=== PATIENT | female | born 1945 | race Caucasian/White ===

== ENCOUNTER 2019-04-26 12:26 | Inpatient (IN) ==
[2019-04-26] MEDS ORDERED: ONDANSETRON 4 MG/2 ML VIAL IV STA (12:59)
[2019-04-26] MEDS ORDERED: SODIUM CHLORIDE 0.9% 1,000 ML IV STA (12:59)
[2019-04-26 13:18] LABS: Basophils # 0.1 10*3/uL (0.0-0.2); Basophils % 0.5 % (0.0-0.8); Hemoglobin 11.8 GM/DL (12.0-16.0); Immature Granulocytes % 0.8 %; Immature Granulocytes Absolute 0.14 #; Lymphocytes # 1.7 10*3/uL (1.4-4.0); Lymphocytes % 9.9 % (21.3-54.2); Mean Corpuscular HGB Conc 30.3 GM/DL (32-36); Mean Corpuscular Volume 86.1 FL (87-102); Monocytes % 6.9 % (1.7-12.7); Neutrophils % 81.9 % (38.7-73.9); Platelet Count 648 T/CUMM (130-400); Red Blood Count 4.53 MC/CUMM (3.8-5.5); Red Cell Distribution Width 14.8 % (9.3-17.3); White Blood Count 17.2 T/CUMM (4-12)
[2019-04-26 13:39] LABS: Albumin 2.1 G/DL (3.4-5.0); Bilirubin,Total 0.8 MG/DL (0.2-1.0); Calcium 8.7 MG/DL (8.5-10.1); Total Protein 6.7 G/DL (6.4-8.3)
[2019-04-26 13:41] LABS: Apearance,Urine Slightly Hazy (Clear); Bacteria,Urine Occasional /HPF (Few); Blood, Urine Negative (Negative); Glucose,Urine (UA) Negative (Negative); Ketones,Urine 20 mg/dL (Negative); Mucus,Urine Many /LPF (Occasional); Nitrite,Urine Negative (Negative); Protein,Urine 100 MG/DL; RBC,Urine 3 /HPF (0-4); Squamous Epithelial Cell,Urine Occasional /HPF (0-10); Urine Color Amber (Yellow); Urine Specific Gravity 1.028 (1.001-1.035); WBC,Urine 9 /HPF (0-6)
[2019-04-26 13:42] LABS: Bilirubin,Urine Small mg/dL (Negative)
[2019-04-26] MEDS ORDERED: ONDANSETRON 4 MG/2 ML VIAL IV PRN (16:58)
[2019-04-26] MEDS ORDERED: ACETAMINOPHEN 325 MG TABLET PO PRN (16:58)
[2019-04-26] MEDS ORDERED: AMITRIPTYLINE 10 MG TABLET PO PRN (17:02)
[2019-04-26] MEDS: SODIUM CHLORIDE 0.9% 1,000 ML IV SCH (18:11)
[2019-04-26] MEDS: ASCORBIC ACID 500 MG TABLET PO SCH (20:47)
[2019-04-26] MEDS: FERROUS SULFATE 325 MG TABLET PO SCH (20:47)
[2019-04-26] MEDS: predniSONE 5 MG TABLET PO SCH (20:47)
[2019-04-26] MEDS ORDERED: HYDROCORTISONE 2.5% RECTAL CREAM 30 GM TUBE TOP PRN (21:14)
[2019-04-27 06:00] LABS: Basophils % 0.3 % (0.0-0.8); Eosinophils % 0.1 % (0.00-10.9); Hematocrit 30.8 VOL% (35.7-47.0); Immature Granulocytes % 0.5 %; Immature Granulocytes Absolute 0.06 #; Lymphocytes # 1.6 10*3/uL (1.4-4.0); Mean Corpuscular HGB Conc 30.2 GM/DL (32-36); Mean Corpuscular Volume 87.5 FL (87-102); Mean Platelet Volume 8.8 FL (9.6-12.0); Neutrophils % 77.1 % (38.7-73.9); Platelet Count 583 T/CUMM (130-400); Red Cell Distribution Width 14.9 % (9.3-17.3); White Blood Count 12.3 T/CUMM (4-12)
[2019-04-27] MEDS: LEVOTHYROXINE 88 MCG TABLET PO SCH (06:10)
[2019-04-27] MEDS: SODIUM CHLORIDE 0.9% 1,000 ML IV SCH ×2 (06:14→20:46)
[2019-04-27 06:22] LABS: Hemoglobin 9.3 GM/DL (12.0-16.0); Red Blood Count 3.52 MC/CUMM (3.8-5.5)
[2019-04-27 07:11] LABS: Calcium 7.5 MG/DL (8.5-10.1); Osmolality,Calculated 276.5 MOS/KG (273-304); VLDL CHOLESTEROL 12.2 MG/DL
[2019-04-27 07:59] LABS: Risk Ratio 2.34; Thyroid Stimulating Hormone 2.13 uIU/ml (0.358-3.74)
[2019-04-27] MEDS: ENOXAPARIN 40 MG/0.4 ML SYRINGE SUBCUT SCH (09:05)
[2019-04-27] MEDS: ASCORBIC ACID 500 MG TABLET PO SCH ×2 (09:06→20:48)
[2019-04-27] MEDS: ASPIRIN EC 81 MG TABLET PO SCH (09:06)
[2019-04-27] MEDS: FERROUS SULFATE 325 MG TABLET PO SCH ×2 (09:06→20:48)
[2019-04-27] MEDS: predniSONE 5 MG TABLET PO SCH ×2 (09:06→20:48)
[2019-04-27] MEDS: LACTOBACILLUS ACIDOPHILUS/BULGARICUS CAPLET PO SCH (09:06)
[2019-04-27] MEDS: FEXOFENADINE 180 MG TABLET PO SCH (09:06)
[2019-04-27] MEDS: MULTIVITAMIN (CENTRUM) TABLET PO SCH (09:06)
[2019-04-27] MEDS: PANTOPRAZOLE 40 MG TABLET PO SCH (09:06)
[2019-04-27] MEDS: ATORVASTATIN 40 MG TABLET PO SCH (09:06)
[2019-04-27 10:07] LABS: Immunoglobulin A 318 MG/DL (70-400); Immunoglobulin G 525 MG/DL (700-1600); Immunoglobulin M 36 MG/DL (40-230)
[2019-04-27 10:46] LABS: Total Protein (Chem) 5.6 G/DL (6.4-8.3)
[2019-04-27 10:51] LABS: Albumin (SPE) 2.5 G/DL (3.2-5.3); Albumin (SPE) Rel % 43.9 %; Alpha 1 (SPE) 0.4 G/DL (0.1-0.4); Alpha 1 (SPE) Rel % 6.9 %; Alpha 2 (SPE) 1.3 G/DL (0.4-1.0); Alpha 2 (SPE) Rel % 22.6 %; Beta (SPE) 0.9 G/DL (0.5-1.1); Beta (SPE) Rel % 16.4 %; Gamma (SPE) 0.6 G/DL (0.7-1.7); Gamma (SPE) Rel % 10.2 %
[2019-04-27] MEDS: cefTRIAXone 1,000 MG in SYRINGE 1 EACH IV SCH (13:05)
[2019-04-27] MEDS ORDERED: oxyCODONE IR 5 MG TABLET PO PRN (16:41)
[2019-04-28 06:04] LABS: Basophils % 0.3 % (0.0-0.8); Hematocrit 28.4 VOL% (35.7-47.0); Hemoglobin 8.6 GM/DL (12.0-16.0); Immature Granulocytes % 0.7 %; Immature Granulocytes Absolute 0.08 #; Lymphocytes # 1.6 10*3/uL (1.4-4.0); Mean Corpuscular HGB Conc 30.3 GM/DL (32-36); Mean Corpuscular Volume 88.5 FL (87-102); Mean Platelet Volume 8.6 FL (9.6-12.0); Monocytes % 8.3 % (1.7-12.7); Neutrophils % 77.7 % (38.7-73.9); Platelet Count 551 T/CUMM (130-400); Red Blood Count 3.21 MC/CUMM (3.8-5.5); Red Cell Distribution Width 14.7 % (9.3-17.3); White Blood Count 11.9 T/CUMM (4-12)
[2019-04-28 06:22] LABS: Calcium 7.9 MG/DL (8.5-10.1); Osmolality,Calculated 283.1 MOS/KG (273-304)
[2019-04-28] MEDS: LEVOTHYROXINE 88 MCG TABLET PO SCH (07:23)
[2019-04-28] MEDS: ASCORBIC ACID 500 MG TABLET PO SCH ×2 (09:16→21:36)
[2019-04-28] MEDS: FEXOFENADINE 180 MG TABLET PO SCH (09:16)
[2019-04-28] MEDS: ENOXAPARIN 40 MG/0.4 ML SYRINGE SUBCUT SCH (09:16)
[2019-04-28] MEDS: FERROUS SULFATE 325 MG TABLET PO SCH ×2 (09:17→21:36)
[2019-04-28] MEDS: predniSONE 5 MG TABLET PO SCH ×2 (09:17→21:36)
[2019-04-28] MEDS: LACTOBACILLUS ACIDOPHILUS/BULGARICUS CAPLET PO SCH (09:17)
[2019-04-28] MEDS: PANTOPRAZOLE 40 MG TABLET PO SCH (09:17)
[2019-04-28] MEDS: MULTIVITAMIN (CENTRUM) TABLET PO SCH (09:17)
[2019-04-28] MEDS: ATORVASTATIN 40 MG TABLET PO SCH (09:17)
[2019-04-28] MEDS: ASPIRIN EC 81 MG TABLET PO SCH (09:20)
[2019-04-28] MEDS: cefTRIAXone 1,000 MG in SYRINGE 1 EACH IV SCH (12:25)
[2019-04-28] MEDS ORDERED: LIDOCAINE 2% TOP JELLY 5 ML TUBE TOP PRN (14:45)
[2019-04-28] MEDS ORDERED: WITCH HAZEL PADS 100/JAR TOP PRN (14:47)
[2019-04-28] MEDS: VANCOMYCIN INJ 1,000 MG in SODIUM CHLORIDE 0.9% 250 ML IV SCH (16:06)
[2019-04-29] MEDS: SODIUM CHLORIDE 0.9% 1,000 ML IV SCH (01:37)
[2019-04-29 05:20] LABS: Basophils % 0.1 % (0.0-0.8); Eosinophils % 0.1 % (0.00-10.9); Hematocrit 27.5 VOL% (35.7-47.0); Hemoglobin 8.5 GM/DL (12.0-16.0); Immature Granulocytes % 0.7 %; Lymphocytes # 1.3 10*3/uL (1.4-4.0); Lymphocytes % 9.5 % (21.3-54.2); Mean Corpuscular HGB Conc 30.9 GM/DL (32-36); Mean Corpuscular Volume 85.9 FL (87-102); Mean Platelet Volume 8.4 FL (9.6-12.0); Monocytes % 6.4 % (1.7-12.7); Neutrophils % 83.2 % (38.7-73.9); Platelet Count 525 T/CUMM (130-400); Red Cell Distribution Width 14.6 % (9.3-17.3); White Blood Count 13.5 T/CUMM (4-12)
[2019-04-29] MEDS: LEVOTHYROXINE 88 MCG TABLET PO SCH (07:23)
[2019-04-29] MEDS: PANTOPRAZOLE 40 MG TABLET PO SCH (09:11)
[2019-04-29] MEDS: FEXOFENADINE 180 MG TABLET PO SCH (09:12)
[2019-04-29] MEDS: ASCORBIC ACID 500 MG TABLET PO SCH ×2 (09:12→21:37)
[2019-04-29] MEDS: FERROUS SULFATE 325 MG TABLET PO SCH ×2 (09:13→21:37)
[2019-04-29] MEDS: ASPIRIN EC 81 MG TABLET PO SCH (09:13)
[2019-04-29] MEDS: predniSONE 5 MG TABLET PO SCH ×2 (09:13→21:37)
[2019-04-29] MEDS: LACTOBACILLUS ACIDOPHILUS/BULGARICUS CAPLET PO SCH (09:14)
[2019-04-29] MEDS: MULTIVITAMIN (CENTRUM) TABLET PO SCH (09:14)
[2019-04-29] MEDS: ATORVASTATIN 40 MG TABLET PO SCH (09:14)
[2019-04-29] MEDS: VANCOMYCIN INJ 1,000 MG in SODIUM CHLORIDE 0.9% 250 ML IV SCH (09:15)
[2019-04-29] MEDS: ENOXAPARIN 40 MG/0.4 ML SYRINGE SUBCUT SCH (09:15)
[2019-04-30] MEDS: VANCOMYCIN INJ 1,000 MG in SODIUM CHLORIDE 0.9% 250 ML IV SCH ×2 (03:38→21:41)
[2019-04-30 05:12] LABS: Basophils % 0.2 % (0.0-0.8); Eosinophils % 0.1 % (0.00-10.9); Hematocrit 26.8 VOL% (35.7-47.0); Hemoglobin 8.3 GM/DL (12.0-16.0); Immature Granulocytes % 0.4 %; Immature Granulocytes Absolute 0.04 #; Lymphocytes # 1.3 10*3/uL (1.4-4.0); Lymphocytes % 12.4 % (21.3-54.2); Mean Corpuscular Volume 85.9 FL (87-102); Monocytes % 7.1 % (1.7-12.7); Neutrophils % 79.8 % (38.7-73.9); Platelet Count 559 T/CUMM (130-400); Red Blood Count 3.12 MC/CUMM (3.8-5.5); Red Cell Distribution Width 14.9 % (9.3-17.3); White Blood Count 10.3 T/CUMM (4-12)
[2019-04-30] MEDS: LEVOTHYROXINE 88 MCG TABLET PO SCH (06:46)
[2019-04-30] MEDS: predniSONE 5 MG TABLET PO SCH (08:40)
[2019-04-30] MEDS: MULTIVITAMIN (CENTRUM) TABLET PO SCH (08:40)
[2019-04-30] MEDS: ASPIRIN EC 81 MG TABLET PO SCH (08:40)
[2019-04-30] MEDS: LACTOBACILLUS ACIDOPHILUS/BULGARICUS CAPLET PO SCH (08:40)
[2019-04-30] MEDS: FEXOFENADINE 180 MG TABLET PO SCH (08:40)
[2019-04-30] MEDS: FERROUS SULFATE 325 MG TABLET PO SCH ×2 (08:41→21:39)
[2019-04-30] MEDS: ATORVASTATIN 40 MG TABLET PO SCH (08:41)
[2019-04-30] MEDS: PANTOPRAZOLE 40 MG TABLET PO SCH (08:41)
[2019-04-30] MEDS: ASCORBIC ACID 500 MG TABLET PO SCH ×2 (08:41→21:39)
[2019-04-30] MEDS: ENOXAPARIN 40 MG/0.4 ML SYRINGE SUBCUT SCH (08:43)
[2019-04-30] MEDS: predniSONE 10 MG TABLET PO SCH (21:39)
[2019-05-01] MEDS: LEVOTHYROXINE 88 MCG TABLET PO SCH (06:31)
[2019-05-01] MEDS: ATORVASTATIN 40 MG TABLET PO SCH (09:57)
[2019-05-01] MEDS: ASPIRIN EC 81 MG TABLET PO SCH (09:57)
[2019-05-01] MEDS: predniSONE 10 MG TABLET PO SCH ×2 (09:57→21:23)
[2019-05-01] MEDS: LACTOBACILLUS ACIDOPHILUS/BULGARICUS CAPLET PO SCH (09:57)
[2019-05-01] MEDS: VANCOMYCIN INJ 1,000 MG in SODIUM CHLORIDE 0.9% 250 ML IV SCH ×2 (09:57→21:24)
[2019-05-01] MEDS: FERROUS SULFATE 325 MG TABLET PO SCH ×2 (09:57→21:23)
[2019-05-01] MEDS: FEXOFENADINE 180 MG TABLET PO SCH (09:57)
[2019-05-01] MEDS: PANTOPRAZOLE 40 MG TABLET PO SCH (09:58)
[2019-05-01] MEDS: METOPROLOL TARTRATE 25 MG TABLET PO SCH ×2 (09:58→21:21)
[2019-05-01] MEDS: ASCORBIC ACID 500 MG TABLET PO SCH ×2 (09:58→21:22)
[2019-05-01] MEDS ORDERED: IMMUNE GLOBULIN 10% 20 GM in PREMIX 1 EACH IV ONE (10:03)
[2019-05-01] MEDS: MULTIVITAMIN (CENTRUM) TABLET PO SCH (10:06)
[2019-05-01] MEDS: ENOXAPARIN 40 MG/0.4 ML SYRINGE SUBCUT SCH (10:06)
[2019-05-02] MEDS: ASPIRIN EC 81 MG TABLET PO SCH (08:27)
[2019-05-02] MEDS: LEVOTHYROXINE 88 MCG TABLET PO SCH (08:27)
[2019-05-02] MEDS: FEXOFENADINE 180 MG TABLET PO SCH (08:27)
[2019-05-02] MEDS: LACTOBACILLUS ACIDOPHILUS/BULGARICUS CAPLET PO SCH (08:27)
[2019-05-02] MEDS: METOPROLOL TARTRATE 25 MG TABLET PO SCH (08:27)
[2019-05-02] MEDS: ATORVASTATIN 40 MG TABLET PO SCH (08:27)
[2019-05-02] MEDS: predniSONE 10 MG TABLET PO SCH (08:27)
[2019-05-02] MEDS: FERROUS SULFATE 325 MG TABLET PO SCH (08:27)
[2019-05-02] MEDS: ASCORBIC ACID 500 MG TABLET PO SCH (08:28)
[2019-05-02] MEDS: ENOXAPARIN 40 MG/0.4 ML SYRINGE SUBCUT SCH (08:28)
[2019-05-02] MEDS: PANTOPRAZOLE 40 MG TABLET PO SCH (08:28)
[2019-05-02] MEDS: VANCOMYCIN INJ 1,000 MG in SODIUM CHLORIDE 0.9% 250 ML IV SCH (08:28)
[2019-05-02] MEDS: MULTIVITAMIN (CENTRUM) TABLET PO SCH (08:28)
[2019-05-02 11:50] VITALS: BP 96/59
== END 2019-05-02 14:35 | disposition swing bed (61) | DRG 690 ==
LOC: N.EDINP 12:26 → N.ED 12:26 → N.4E 15:55 → SUATTDRO 04-28 14:37
PROVIDERS: ADMIT Internal Medicine; ATTEND Internal Medicine

== ENCOUNTER 2019-07-03 17:26 | Inpatient (IN) ==
[2019-07-03] MEDS ORDERED: ACETAMINOPHEN 500 MG TABLET PO STA (18:13)
[2019-07-03] MEDS ORDERED: SODIUM CHLORIDE 0.9% 1,000 ML IV STA ×2 (18:13→20:02)
[2019-07-03 18:21] LABS: Basophils # 0.1 10*3/uL (0.0-0.2); Basophils % 0.6 % (0.0-0.8); Hematocrit 36.2 VOL% (35.7-47.0); Hemoglobin 11.1 GM/DL (12.0-16.0); Immature Granulocytes % 0.4 %; Immature Granulocytes Absolute 0.03 #; Lymphocytes # 1.4 10*3/uL (1.4-4.0); Lymphocytes % 16.4 % (21.3-54.2); Mean Corpuscular HGB Conc 30.7 GM/DL (32-36); Mean Corpuscular Volume 92.1 FL (87-102); Mean Platelet Volume 8.6 FL (9.6-12.0); Monocytes % 7.3 % (1.7-12.7); Neutrophils % 75.3 % (38.7-73.9); Platelet Count 550 T/CUMM (130-400); Red Blood Count 3.93 MC/CUMM (3.8-5.5); Red Cell Distribution Width 15.3 % (9.3-17.3); White Blood Count 8.5 T/CUMM (4-12)
[2019-07-03 18:35] LABS: Albumin 2.5 G/DL (3.4-5.0); Bilirubin,Total 0.5 MG/DL (0.2-1.0); Calcium 8.5 MG/DL (8.5-10.1); Osmolality,Calculated 271.8 MOS/KG (273-304); Total Protein 5.8 G/DL (6.4-8.3)
[2019-07-03 19:44] LABS: Amorphous Crystals,Urine Occasional /HPF (Few); Apearance,Urine Slightly Hazy (Clear); Bilirubin,Urine Negative (Negative); Blood, Urine Negative (Negative); Glucose,Urine (UA) Negative (Negative); Ketones,Urine 20 mg/dL (Negative); Mucus,Urine Occasional /LPF (Occasional); Nitrite,Urine Negative (Negative); Protein,Urine Negative; RBC,Urine <1 /HPF (0-4); Squamous Epithelial Cell,Urine Occasional /HPF (0-10); Urine Color Yellow (Yellow); Urine Specific Gravity 1.018 (1.001-1.035); WBC,Urine 1 /HPF (0-6)
[2019-07-03] MEDS: PIPERACILLIN/TAZOBACTAM 3,375 MG in SODIUM CHLORIDE 0.9% 100 ML IV SCH (22:43)
[2019-07-03] MEDS ORDERED: INFLUENZA VIRUS VACCINE 0.5 ML SYRINGE IM ONE (23:07)
[2019-07-04] MEDS ORDERED: ACETAMINOPHEN 325 MG TABLET PO PRN (01:20)
[2019-07-04] MEDS ORDERED: ONDANSETRON 4 MG/2 ML VIAL IV PRN (01:20)
[2019-07-04] MEDS ORDERED: ALBUTEROL 2.5 MG/3 ML NEB RESP TX PRN (01:20)
[2019-07-04] MEDS ORDERED: DOCUSATE SODIUM 100 MG CAPSULE PO PRN (01:20)
[2019-07-04] MEDS: SODIUM CHLORIDE 0.9% 1,000 ML IV SCH (03:00)
[2019-07-04] MEDS: VANCOMYCIN INJ 1,000 MG in SODIUM CHLORIDE 0.9% 250 ML IV SCH ×2 (03:50→20:39)
[2019-07-04 05:44] LABS: Basophils # 0.1 10*3/uL (0.0-0.2); Basophils % 0.5 % (0.0-0.8); Eosinophils % 0.1 % (0.00-10.9); Hematocrit 34.2 VOL% (35.7-47.0); Hemoglobin 10.5 GM/DL (12.0-16.0); Immature Granulocytes % 0.7 %; Immature Granulocytes Absolute 0.07 #; Lymphocytes # 0.9 10*3/uL (1.4-4.0); Lymphocytes % 9.2 % (21.3-54.2); Mean Corpuscular HGB Conc 30.7 GM/DL (32-36); Mean Corpuscular Volume 92.4 FL (87-102); Mean Platelet Volume 8.3 FL (9.6-12.0); Monocytes % 5.6 % (1.7-12.7); Neutrophils % 83.9 % (38.7-73.9); Platelet Count 495 T/CUMM (130-400); Red Cell Distribution Width 15.2 % (9.3-17.3); White Blood Count 9.7 T/CUMM (4-12)
[2019-07-04 06:08] LABS: Calcium 7.8 MG/DL (8.5-10.1); Osmolality,Calculated 275.5 MOS/KG (273-304); Thyroid Stimulating Hormone 6.29 uIU/ml (0.358-3.74)
[2019-07-04] MEDS: PIPERACILLIN/TAZOBACTAM 3,375 MG in SODIUM CHLORIDE 0.9% 100 ML IV SCH ×3 (06:35→22:17)
[2019-07-04] MEDS: LEVOTHYROXINE 88 MCG TABLET PO SCH (07:58)
[2019-07-04] MEDS: ENOXAPARIN 40 MG/0.4 ML SYRINGE SUBCUT SCH (07:59)
[2019-07-04] MEDS: FERROUS SULFATE 325 MG TABLET PO SCH (08:50)
[2019-07-04] MEDS: predniSONE 10 MG TABLET PO SCH ×2 (08:50→20:40)
[2019-07-04] MEDS ORDERED: MAGNESIUM SULF RIDER 2 GM in PREMIX 1 EACH IV ONE (11:00)
[2019-07-04] MEDS ORDERED: POTASSIUM CHLORIDE 20 MEQ TABLET PO ONE (11:00)
[2019-07-04] MEDS ORDERED: LACTOBACILLUS ACIDOPHILUS/BULGARICUS CAPLET PO SCH (21:00)
[2019-07-04] MEDS ORDERED: MULTIVITAMIN (CENTRUM) TABLET PO SCH (21:00)
[2019-07-05 04:52] LABS: Basophils % 0.4 % (0.0-0.8); Hematocrit 30.9 VOL% (35.7-47.0); Hemoglobin 9.5 GM/DL (12.0-16.0); Immature Granulocytes % 0.4 %; Immature Granulocytes Absolute 0.04 #; Lymphocytes # 1.3 10*3/uL (1.4-4.0); Lymphocytes % 12.5 % (21.3-54.2); Mean Corpuscular HGB Conc 30.7 GM/DL (32-36); Mean Corpuscular Volume 91.2 FL (87-102); Mean Platelet Volume 8.9 FL (9.6-12.0); Monocytes % 4.2 % (1.7-12.7); Neutrophils % 82.5 % (38.7-73.9); Platelet Count 495 T/CUMM (130-400); Red Blood Count 3.39 MC/CUMM (3.8-5.5); Red Cell Distribution Width 15.1 % (9.3-17.3); White Blood Count 10.7 T/CUMM (4-12)
[2019-07-05 05:12] LABS: Calcium 8.2 MG/DL (8.5-10.1); Osmolality,Calculated 278.5 MOS/KG (273-304)
[2019-07-05] MEDS: PIPERACILLIN/TAZOBACTAM 3,375 MG in SODIUM CHLORIDE 0.9% 100 ML IV SCH (06:47)
[2019-07-05] MEDS: SODIUM CHLORIDE 0.9% 1,000 ML IV SCH (07:50)
[2019-07-05] MEDS: ENOXAPARIN 40 MG/0.4 ML SYRINGE SUBCUT SCH (08:17)
[2019-07-05] MEDS: LEVOTHYROXINE 88 MCG TABLET PO SCH (08:19)
[2019-07-05] MEDS ORDERED: ASCORBIC ACID 500 MG TABLET PO SCH (09:00)
[2019-07-05] MEDS ORDERED: ASPIRIN EC 81 MG TABLET PO SCH (09:00)
[2019-07-05] MEDS: FERROUS SULFATE 325 MG TABLET PO SCH (09:40)
[2019-07-05] MEDS: predniSONE 10 MG TABLET PO SCH (09:41)
[2019-07-05 11:41] VITALS: BP 104/69
[2019-07-06] MEDS ORDERED: LEVOFLOXACIN 500 MG TABLET PO SCH (09:00)
== END 2019-07-05 12:25 | disposition home health service (06) | DRG 872 ==
LOC: EDBD → EDUNIT# → N.ED 17:26 → N.EDINP 21:58 → SUATTDRO 21:58 → N.CC 22:14 → N.4E 07-04 15:54
PROVIDERS: ADMIT Internal Medicine; ATTEND Hospitalist

== ENCOUNTER 2020-02-11 19:50 | Inpatient (IN) ==
[2020-02-11 21:52] LABS: Basophils # 0.1 10*3/uL (0.0-0.2); Basophils % 0.4 % (0.0-0.8); Eosinophils # 0.2 10*3/uL (0.0-0.87); Eosinophils % 1.1 % (0.00-10.9); Hematocrit 32.1 VOL% (35.7-47.0); Immature Granulocytes % 0.5 %; Immature Granulocytes Absolute 0.08 #; Lymphocytes # 3.2 10*3/uL (1.4-4.0); Lymphocytes % 19.7 % (21.3-54.2); Mean Corpuscular HGB Conc 31.2 GM/DL (32-36); Mean Corpuscular Volume 85.8 FL (87-102); Mean Platelet Volume 8.5 FL (9.6-12.0); Neutrophils % 70.3 % (38.7-73.9); Platelet Count 644 T/CUMM (130-400); Red Blood Count 3.74 MC/CUMM (3.8-5.5); Red Cell Distribution Width 13.2 % (9.3-17.3); White Blood Count 16.2 T/CUMM (4-12)
[2020-02-11 22:02] LABS: PT Patient Result 11.2 SECS (9.8-11.9)
[2020-02-11 22:09] LABS: Alanine Aminotransferase 18 U/L (13-56); Albumin 2.4 G/DL (3.4-5.0); Alkaline Phosphatase 89 U/L (45-117); Aspartate Amino Transferase 18 U/L (0-37); Bilirubin,Total < 0.39 MG/DL (0.2-1.0); Blood Urea Nitrogen 14 MG/DL (7-18); Calcium 8.5 MG/DL (8.5-10.1); Estimated Glom Filtration Rate 49 ML/MIN; Glucose 89 MG/DL (74-106); Osmolality,Calculated 263.5 MOS/KG (273-304); Total Protein 6.7 G/DL (6.4-8.3); Troponin I < 0.015 NG/ML (0.00-0.045)
[2020-02-11] MEDS ORDERED: PIPERACILLIN/TAZOBACTAM 3,375 MG in SODIUM CHLORIDE 0.9% 100 ML IV STA (22:34)
[2020-02-12 00:08] LABS: Ferritin 207.9 ng/ml (8-252)
[2020-02-12] MEDS ORDERED: DEXTROSE 50% 25 GM/50 ML VIAL IV PRN (00:23)
[2020-02-12] MEDS ORDERED: GLUCAGON 1 MG VIAL IM PRN (00:23)
[2020-02-12] MEDS ORDERED: ONDANSETRON 4 MG/2 ML VIAL IV PRN (00:34)
[2020-02-12] MEDS ORDERED: ACETAMINOPHEN 325 MG TABLET PO PRN (00:34)
[2020-02-12] MEDS ORDERED: guaiFENesin/DM ER 600-30 MG TABLET PO PRN (00:34)
[2020-02-12] MEDS ORDERED: diphenhydrAMINE CAP 25 MG CAPSULE PO PRN (00:34)
[2020-02-12] MEDS ORDERED: ALUMINUM/MAGNES/SIMETH MAX STR 30 ML UDCUP PO PRN (00:34)
[2020-02-12] MEDS ORDERED: hydrALAZINE 20 MG/1 ML VIAL IV PRN (00:34)
[2020-02-12] MEDS ORDERED: NICOTINE 21 MG/24 HR PATCH TRANSDERM PRN (00:34)
[2020-02-12] MEDS ORDERED: SODIUM CHLORIDE 0.9% 1,000 ML IV SCH (01:00)
[2020-02-12 06:17] LABS: Basophils # 0.1 10*3/uL (0.0-0.2); Basophils % 0.4 % (0.0-0.8); Eosinophils # 0.4 10*3/uL (0.0-0.87); Eosinophils % 3.3 % (0.00-10.9); Hematocrit 29.4 VOL% (35.7-47.0); Hemoglobin 9.2 GM/DL (12.0-16.0); Immature Granulocytes % 0.5 %; Immature Granulocytes Absolute 0.07 #; Lymphocytes # 2.3 10*3/uL (1.4-4.0); Lymphocytes % 18.3 % (21.3-54.2); Mean Corpuscular HGB Conc 31.3 GM/DL (32-36); Mean Corpuscular Volume 85.2 FL (87-102); Mean Platelet Volume 8.5 FL (9.6-12.0); Monocytes % 10.3 % (1.7-12.7); Neutrophils % 67.2 % (38.7-73.9); Platelet Count 605 T/CUMM (130-400); Red Blood Count 3.45 MC/CUMM (3.8-5.5); Red Cell Distribution Width 13.2 % (9.3-17.3); White Blood Count 12.8 T/CUMM (4-12)
[2020-02-12] MEDS ORDERED: PIPERACILLIN/TAZOBACTAM 3,375 MG in SODIUM CHLORIDE 0.9% 100 ML IV SCH (08:00)
[2020-02-12 08:25] VITALS: BP 105/64
== END 2020-02-12 12:30 | disposition home or self-care (01) | DRG 181 ==
LOC: N.ED 19:50 → N.EDINP 02-12 00:41 → N.3E 02-12 06:35
PROVIDERS: ADMIT Internal Medicine Geriatric Medicine; ATTEND Internal Medicine Geriatric Medicine

== ENCOUNTER 2020-04-02 21:09 | Inpatient (IN) ==
[2020-04-02] MEDS ORDERED: SODIUM CHLORIDE 0.9% 1,000 ML IV STA (22:22)
[2020-04-02 22:31] LABS: Basophils % 0.2 % (0.0-0.8); Eosinophils % 0.3 % (0.00-10.9); Hemoglobin 9.2 GM/DL (12.0-16.0); Immature Granulocytes % 0.4 %; Immature Granulocytes Absolute 0.06 #; Lymphocytes # 1.8 10*3/uL (1.4-4.0); Lymphocytes % 13.6 % (21.3-54.2); Mean Corpuscular HGB Conc 31.7 GM/DL (32-36); Mean Corpuscular Volume 84.3 FL (87-102); Mean Platelet Volume 9.1 FL (9.6-12.0); Monocytes % 9.3 % (1.7-12.7); Neutrophils % 76.2 % (38.7-73.9); Platelet Count 727 T/CUMM (130-400); Red Blood Count 3.44 MC/CUMM (3.8-5.5); Red Cell Distribution Width 16.6 % (9.3-17.3); White Blood Count 13.4 T/CUMM (4-12)
[2020-04-02 22:41] LABS: Alanine Aminotransferase 17 U/L (13-56); Albumin 1.8 G/DL (3.4-5.0); Alkaline Phosphatase 101 U/L (45-117); Aspartate Amino Transferase 16 U/L (0-37); Bilirubin,Total < 0.39 MG/DL (0.2-1.0); Blood Urea Nitrogen 12 MG/DL (7-18); Calcium 7.5 MG/DL (8.5-10.1); Estimated Glom Filtration Rate 55 ML/MIN; Glucose 82 MG/DL (74-106); Osmolality,Calculated 264.4 MOS/KG (273-304); Total Protein 5.9 G/DL (6.4-8.3)
[2020-04-03 00:48] LABS: Apearance,Urine CLEAR (Clear); Bilirubin,Urine Negative (Negative); Blood, Urine Negative (Negative); Glucose,Urine (UA) Negative (Negative); Ketones,Urine Negative (Negative); Mucus,Urine Occasional /LPF (Occasional); Nitrite,Urine Negative (Negative); Protein,Urine Negative; RBC,Urine <1 /HPF (0-4); Urine Color Straw (Yellow); Urine Specific Gravity 1.039 (1.001-1.035); Urine Urobilinogen < 2.0 EU/DL (0.2-1.0); WBC,Urine 1 /HPF (0-6)
[2020-04-03] MEDS ORDERED: LEVOFLOXACIN INJ 750 MG in PREMIX 1 EACH IV STA (01:41)
[2020-04-03] MEDS ORDERED: DEXTROSE 50% 25 GM/50 ML VIAL IV PRN (02:05)
[2020-04-03] MEDS ORDERED: PROMETHAZINE 25 MG/1 ML VIAL IM PRN (02:05)
[2020-04-03] MEDS ORDERED: ONDANSETRON 4 MG/2 ML VIAL IV PRN (02:05)
[2020-04-03] MEDS ORDERED: hydrALAZINE 20 MG/1 ML VIAL IV PRN (02:05)
[2020-04-03] MEDS ORDERED: GLUCAGON 1 MG VIAL IM PRN (02:05)
[2020-04-03] MEDS ORDERED: MORPHINE 4 MG/1 ML VIAL IV PRN (02:05)
[2020-04-03] MEDS ORDERED: NICOTINE 21 MG/24 HR PATCH TRANSDERM PRN (02:05)
[2020-04-03] MEDS: metroNIDAZOLE INJ 500 MG in PREMIX 1 EACH IV SCH ×2 (03:22→16:39)
[2020-04-03] MEDS: SODIUM CHLORIDE 0.9% 1,000 ML IV SCH ×2 (03:22→16:38)
[2020-04-03 06:59] LABS: Albumin 1.6 G/DL (3.4-5.0); Bilirubin,Total 0.6 MG/DL (0.2-1.0); Calcium 7.4 MG/DL (8.5-10.1); Osmolality,Calculated 265.2 MOS/KG (273-304); Total Protein 5.2 G/DL (6.4-8.3)
[2020-04-03] MEDS ORDERED: CALCIUM GLUCONATE 2,000 MG in SODIUM CHLORIDE 0.9% 100 ML IV ONE (12:35)
[2020-04-03] MEDS ORDERED: MAGNESIUM SULF RIDER 4 GM in PREMIX 1 EACH IV PRN (12:44)
[2020-04-03] MEDS ORDERED: MAGNESIUM SULF RIDER 2 GM in PREMIX 1 EACH IV PRN (12:44)
[2020-04-04] MEDS: LEVOFLOXACIN INJ 500 MG in PREMIX 1 EACH IV SCH (02:10)
[2020-04-04] MEDS: metroNIDAZOLE INJ 500 MG in PREMIX 1 EACH IV SCH ×3 (04:23→21:05)
[2020-04-04 06:20] LABS: Basophils % 0.4 % (0.0-0.8); Eosinophils # 0.1 10*3/uL (0.0-0.87); Eosinophils % 0.9 % (0.00-10.9); Hematocrit 27.1 VOL% (35.7-47.0); Hemoglobin 8.4 GM/DL (12.0-16.0); Immature Granulocytes % 0.5 %; Immature Granulocytes Absolute 0.05 #; Lymphocytes # 1.8 10*3/uL (1.4-4.0); Lymphocytes % 17.5 % (21.3-54.2); Mean Corpuscular Volume 83.4 FL (87-102); Mean Platelet Volume 8.8 FL (9.6-12.0); Monocytes % 11.2 % (1.7-12.7); Neutrophils % 69.5 % (38.7-73.9); Platelet Count 698 T/CUMM (130-400); Red Blood Count 3.25 MC/CUMM (3.8-5.5); Red Cell Distribution Width 16.6 % (9.3-17.3); White Blood Count 10.4 T/CUMM (4-12)
[2020-04-04] MEDS: SODIUM CHLORIDE 0.9% 1,000 ML IV SCH ×2 (06:22→09:32)
[2020-04-04 06:48] LABS: Calcium 7.6 MG/DL (8.5-10.1); Osmolality,Calculated 268.8 MOS/KG (273-304)
[2020-04-04] MEDS: predniSONE 20 MG TABLET PO SCH (09:53)
[2020-04-04] MEDS ORDERED: IRON SUCROSE 300 MG in SODIUM CHLORIDE 0.9% 100 ML IV ONE (10:00)
[2020-04-04] MEDS ORDERED: BISACODYL 5 MG TABLET PO ONE (12:00)
[2020-04-04] MEDS: DEXT 5% NACL 0.45% KCL 20 MEQ 20 MEQ/1,000 ML BAG IV SCH (13:49)
[2020-04-04] MEDS ORDERED: POLYETHYLENE GLYCOL POWDER 255 GM BOTTLE PO ONE (18:00)
[2020-04-04] MEDS: ZINC OXIDE PASTE 113 GM TUBE TOP SCH (21:06)
[2020-04-05] MEDS: LEVOFLOXACIN INJ 500 MG in PREMIX 1 EACH IV SCH (01:29)
[2020-04-05 05:13] LABS: Basophils % 0.2 % (0.0-0.8); Eosinophils % 0.1 % (0.00-10.9); Hemoglobin 8.3 GM/DL (12.0-16.0); Immature Granulocytes % 0.6 %; Lymphocytes # 2.1 10*3/uL (1.4-4.0); Lymphocytes % 13.1 % (21.3-54.2); Mean Corpuscular HGB Conc 31.9 GM/DL (32-36); Mean Platelet Volume 8.7 FL (9.6-12.0); Monocytes % 9.6 % (1.7-12.7); Neutrophils % 76.4 % (38.7-73.9); Platelet Count 670 T/CUMM (130-400); Red Blood Count 3.17 MC/CUMM (3.8-5.5); Red Cell Distribution Width 16.1 % (9.3-17.3); White Blood Count 15.8 T/CUMM (4-12)
[2020-04-05 05:14] LABS: INR 1.2; PT Patient Result 12.9 SECS (9.8-11.9)
[2020-04-05 05:19] LABS: Calcium 7.4 MG/DL (8.5-10.1); Osmolality,Calculated 265.2 MOS/KG (273-304)
[2020-04-05] MEDS: metroNIDAZOLE INJ 500 MG in PREMIX 1 EACH IV SCH ×3 (05:59→21:33)
[2020-04-05] MEDS ORDERED: MAGNESIUM CITRATE 300 ML BOTTLE PO ONE (06:00)
[2020-04-05] MEDS: DEXT 5% NACL 0.45% KCL 20 MEQ 20 MEQ/1,000 ML BAG IV SCH ×2 (07:23→13:08)
[2020-04-05] MEDS ORDERED: LACTATED RINGERS 1,000 ML IV SCH (08:00)
[2020-04-05] MEDS: POTASSIUM CHLORIDE RIDER 10 MEQ in PREMIX 1 EACH IV PRN ×5 (09:00→16:52)
[2020-04-05] MEDS: ZINC OXIDE PASTE 113 GM TUBE TOP SCH ×2 (09:27→20:19)
[2020-04-05] MEDS: predniSONE 20 MG TABLET PO SCH (09:27)
[2020-04-05] MEDS ORDERED: POLYETHYLENE GLYCOL POWDER 255 GM BOTTLE PO ONE (09:54)
[2020-04-05] MEDS ORDERED: POTASSIUM CHLORIDE 20 MEQ TABLET PO ONE (12:41)
[2020-04-05] MEDS: ALBUTEROL/IPRATROPIUM 3 ML NEB RESP TX SCH (19:19)
[2020-04-05] MEDS: ACETAMINOPHEN 325 MG TABLET PO PRN (22:47)
[2020-04-06] MEDS: ACETAMINOPHEN 325 MG TABLET PO PRN (00:13)
[2020-04-06] MEDS: ALBUTEROL/IPRATROPIUM 3 ML NEB RESP TX SCH ×4 (00:48→19:25)
[2020-04-06] MEDS: LEVOFLOXACIN INJ 500 MG in PREMIX 1 EACH IV SCH (03:18)
[2020-04-06 05:35] LABS: Basophils % 0.4 % (0.0-0.8); Eosinophils # 0.1 10*3/uL (0.0-0.87); Hematocrit 27.2 VOL% (35.7-47.0); Hemoglobin 8.1 GM/DL (12.0-16.0); Immature Granulocytes % 0.4 %; Immature Granulocytes Absolute 0.03 #; Lymphocytes # 1.9 10*3/uL (1.4-4.0); Lymphocytes % 22.9 % (21.3-54.2); Mean Corpuscular HGB Conc 29.8 GM/DL (32-36); Mean Corpuscular Volume 85.5 FL (87-102); Mean Platelet Volume 8.6 FL (9.6-12.0); Monocytes % 11.5 % (1.7-12.7); Neutrophils % 63.8 % (38.7-73.9); Platelet Count 702 T/CUMM (130-400); Red Blood Count 3.18 MC/CUMM (3.8-5.5); Red Cell Distribution Width 16.6 % (9.3-17.3); White Blood Count 8.3 T/CUMM (4-12)
[2020-04-06 05:47] LABS: Calcium 7.6 MG/DL (8.5-10.1); Osmolality,Calculated 266.1 MOS/KG (273-304)
[2020-04-06] MEDS: metroNIDAZOLE INJ 500 MG in PREMIX 1 EACH IV SCH ×3 (06:58→21:10)
[2020-04-06] MEDS: DEXT 5% NACL 0.45% KCL 20 MEQ 20 MEQ/1,000 ML BAG IV SCH ×2 (08:19→23:30)
[2020-04-06] MEDS ORDERED: propofoL 200 MG/20 ML VIAL IV ONE (09:00)
[2020-04-06] MEDS ORDERED: ETOMIDATE 20 MG/10 ML VIAL IV ONE (09:00)
[2020-04-06] MEDS ORDERED: LIDOCAINE 2% 5 ML VIAL ONE (09:00)
[2020-04-06] MEDS: predniSONE 20 MG TABLET PO SCH (11:30)
[2020-04-06] MEDS: ZINC OXIDE PASTE 113 GM TUBE TOP SCH ×2 (13:20→21:13)
[2020-04-06] MEDS ORDERED: PRAMOXINE/HYDROCORTISONE RECTAL FOAM 10 GM CAN RECTAL PRN (13:51)
[2020-04-07] MEDS: ALBUTEROL/IPRATROPIUM 3 ML NEB RESP TX SCH ×4 (00:44→21:47)
[2020-04-07] MEDS: LEVOFLOXACIN INJ 500 MG in PREMIX 1 EACH IV SCH (03:32)
[2020-04-07 06:09] LABS: Basophils % 0.3 % (0.0-0.8); Eosinophils # 0.2 10*3/uL (0.0-0.87); Eosinophils % 2.1 % (0.00-10.9); Hematocrit 25.4 VOL% (35.7-47.0); Hemoglobin 7.8 GM/DL (12.0-16.0); Immature Granulocytes % 0.6 %; Immature Granulocytes Absolute 0.05 #; Lymphocytes # 1.9 10*3/uL (1.4-4.0); Lymphocytes % 22.2 % (21.3-54.2); Mean Corpuscular HGB Conc 30.7 GM/DL (32-36); Mean Corpuscular Volume 84.4 FL (87-102); Mean Platelet Volume 8.4 FL (9.6-12.0); Monocytes % 9.6 % (1.7-12.7); Neutrophils % 65.2 % (38.7-73.9); Platelet Count 687 T/CUMM (130-400); Red Blood Count 3.01 MC/CUMM (3.8-5.5); White Blood Count 8.7 T/CUMM (4-12)
[2020-04-07 06:34] LABS: Calcium 7.3 MG/DL (8.5-10.1); Osmolality,Calculated 269.8 MOS/KG (273-304)
[2020-04-07] MEDS: metroNIDAZOLE INJ 500 MG in PREMIX 1 EACH IV SCH ×3 (07:10→22:55)
[2020-04-07] MEDS: ZINC OXIDE PASTE 113 GM TUBE TOP SCH ×2 (09:37→22:56)
[2020-04-07] MEDS: ASPIRIN EC 81 MG TABLET PO SCH (11:40)
[2020-04-07] MEDS: POTASSIUM CHLORIDE 20 MEQ TABLET PO SCH (11:40)
[2020-04-07] MEDS: predniSONE 20 MG TABLET PO SCH (11:40)
[2020-04-07] MEDS: ASCORBIC ACID 500 MG TABLET PO SCH (11:41)
[2020-04-07] MEDS: FERROUS SULFATE 325 MG TABLET PO SCH (15:06)
[2020-04-07] MEDS: ACETAMINOPHEN 325 MG TABLET PO PRN (21:07)
[2020-04-07] MEDS: MULTIVITAMIN (CENTRUM) TABLET PO SCH (21:07)
[2020-04-08] MEDS: ALBUTEROL/IPRATROPIUM 3 ML NEB RESP TX SCH ×5 (01:54→19:33)
[2020-04-08] MEDS: LEVOFLOXACIN INJ 500 MG in PREMIX 1 EACH IV SCH (02:28)
[2020-04-08] MEDS: LEVOTHYROXINE 100 MCG TABLET PO SCH (05:42)
[2020-04-08] MEDS: metroNIDAZOLE INJ 500 MG in PREMIX 1 EACH IV SCH ×3 (05:43→22:59)
[2020-04-08 06:05] LABS: Basophils % 0.1 % (0.0-0.8); Hematocrit 26.3 VOL% (35.7-47.0); Hemoglobin 8.2 GM/DL (12.0-16.0); Immature Granulocytes % 1.1 %; Immature Granulocytes Absolute 0.12 #; Lymphocytes # 1.7 10*3/uL (1.4-4.0); Lymphocytes % 16.3 % (21.3-54.2); Mean Corpuscular HGB Conc 31.2 GM/DL (32-36); Mean Corpuscular Volume 83.2 FL (87-102); Mean Platelet Volume 8.5 FL (9.6-12.0); Monocytes % 6.3 % (1.7-12.7); Neutrophils % 76.2 % (38.7-73.9); Platelet Count 723 T/CUMM (130-400); Red Blood Count 3.16 MC/CUMM (3.8-5.5); Red Cell Distribution Width 17.1 % (9.3-17.3); White Blood Count 10.7 T/CUMM (4-12)
[2020-04-08 06:56] LABS: Calcium 8.1 MG/DL (8.5-10.1); Osmolality,Calculated 269.8 MOS/KG (273-304)
[2020-04-08] MEDS: ASPIRIN EC 81 MG TABLET PO SCH (09:23)
[2020-04-08] MEDS: POTASSIUM CHLORIDE 20 MEQ TABLET PO SCH (09:23)
[2020-04-08] MEDS: predniSONE 20 MG TABLET PO SCH (09:23)
[2020-04-08] MEDS: FERROUS SULFATE 325 MG TABLET PO SCH (09:23)
[2020-04-08] MEDS: ZINC OXIDE PASTE 113 GM TUBE TOP SCH ×2 (09:23→23:01)
[2020-04-08] MEDS: ASCORBIC ACID 500 MG TABLET PO SCH (11:09)
[2020-04-08] MEDS: DEXT 5% NACL 0.45% KCL 20 MEQ 20 MEQ/1,000 ML BAG IV SCH (14:53)
[2020-04-08] MEDS: ACETAMINOPHEN 325 MG TABLET PO PRN (22:56)
[2020-04-08] MEDS: MULTIVITAMIN (CENTRUM) TABLET PO SCH (22:58)
[2020-04-09] MEDS: LEVOFLOXACIN INJ 500 MG in PREMIX 1 EACH IV SCH (01:58)
[2020-04-09] MEDS: ALBUTEROL/IPRATROPIUM 3 ML NEB RESP TX SCH ×2 (02:37→07:34)
[2020-04-09 05:02] LABS: Basophils % 0.1 % (0.0-0.8); Eosinophils % 0.1 % (0.00-10.9); Hematocrit 25.3 VOL% (35.7-47.0); Hemoglobin 7.8 GM/DL (12.0-16.0); Immature Granulocytes % 1.7 %; Immature Granulocytes Absolute 0.22 #; Lymphocytes # 2.8 10*3/uL (1.4-4.0); Mean Corpuscular HGB Conc 30.8 GM/DL (32-36); Mean Corpuscular Volume 84.6 FL (87-102); Mean Platelet Volume 8.2 FL (9.6-12.0); Monocytes % 6.8 % (1.7-12.7); Neutrophils % 69.3 % (38.7-73.9); Platelet Count 704 T/CUMM (130-400); Red Blood Count 2.99 MC/CUMM (3.8-5.5); Red Cell Distribution Width 17.9 % (9.3-17.3); White Blood Count 12.6 T/CUMM (4-12)
[2020-04-09 05:20] LABS: Calcium 7.7 MG/DL (8.5-10.1); Osmolality,Calculated 265.2 MOS/KG (273-304)
[2020-04-09] MEDS: LEVOTHYROXINE 100 MCG TABLET PO SCH (05:57)
[2020-04-09] MEDS: metroNIDAZOLE INJ 500 MG in PREMIX 1 EACH IV SCH (06:02)
[2020-04-09] MEDS: ASPIRIN EC 81 MG TABLET PO SCH (08:39)
[2020-04-09] MEDS: predniSONE 20 MG TABLET PO SCH (08:40)
[2020-04-09] MEDS: FERROUS SULFATE 325 MG TABLET PO SCH (08:40)
[2020-04-09] MEDS: ASCORBIC ACID 500 MG TABLET PO SCH (08:41)
[2020-04-09] MEDS: POTASSIUM CHLORIDE 20 MEQ TABLET PO SCH (08:41)
[2020-04-09] MEDS: ZINC OXIDE PASTE 113 GM TUBE TOP SCH (09:17)
[2020-04-09 11:13] VITALS: BP 120/66
== END 2020-04-09 12:51 | disposition swing bed (61) | DRG 391 ==
LOC: EDBD → EDUNIT# → N.ED 21:09 → N.EDINP 21:09 → N.3E 04-03 03:21 → SUATTDRO 04-05 08:49
PROVIDERS: ADMIT Hospitalist; ATTEND Family Medicine
PROC: COLONBX (2020-04-06 09:35)

== ENCOUNTER 2022-10-21 14:43 | Observation (INO) ==
[2022-10-21 16:14] LABS: Basophils % 0.3 % (0.0-0.8); Eosinophils % 0.2 % (0.00-10.9); Hematocrit 37.5 VOL% (35.7-47.0); Hemoglobin 12.1 GM/DL (12.0-16.0); Immature Granulocytes % 0.4 %; Immature Granulocytes Absolute 0.05 #; Lymphocytes # 1.7 10*3/uL (1.4-4.0); Lymphocytes % 13.2 % (21.3-54.2); Mean Corpuscular HGB Conc 32.3 GM/DL (32-36); Mean Corpuscular Volume 89.3 FL (87-102); Mean Platelet Volume 10.3 FL (9.6-12.0); Monocytes # 1.4 10*3/uL (0.11-0.8); Monocytes % 10.5 % (1.7-12.7); Neutrophils % 75.4 % (38.7-73.9); Platelet Count 333 T/CUMM (130-400)
[2022-10-21 16:27] LABS: Albumin 2.6 G/DL (3.4-5.0); Bilirubin,Total 0.5 MG/DL (0.20-1.00); Calcium 8.4 MG/DL (8.5-10.1); Osmolality,Calculated 275.8 MOS/KG (273-304); Potassium 3.4 MMOL/L (3.5-5.1); Total Protein 6.7 G/DL (6.4-8.2)
[2022-10-21 16:37] LABS: Bacteria,Urine Many /HPF (Few); Mucus,Urine Occasional /LPF (Occasional); RBC,Urine 6 /HPF (0-4); Squamous Epithelial Cell,Urine Occasional /HPF (0-10)
[2022-10-21 16:40] LABS: Bilirubin,Urine Negative (Negative); Blood, Urine Small mg/dL (Negative); Glucose,Urine (UA) Negative (Negative); Ketones,Urine Negative (Negative); Nitrite,Urine Positive (Negative); Protein,Urine 30 mg/dL (Negative); Urine Appearance Clear (Clear); Urine Color Yellow (Yellow); Urine Urobilinogen 0.2 eU/dL (<2.0); Urine pH 5.5 (4.5-8.0)
[2022-10-21] MEDS ORDERED: SODIUM CHLORIDE 0.9% 1,000 ML IV STA (17:39)
[2022-10-21] MEDS ORDERED: cefTRIAXone 1,000 MG in SODIUM CHLORIDE 0.9% 100 ML IV STA (18:01)
[2022-10-21] MEDS ORDERED: LACTULOSE 20 GM/30 ML UDCUP PO PRN (19:47)
[2022-10-21] MEDS: DOCUSATE SODIUM 100 MG CAPSULE PO SCH (22:09)
[2022-10-21] MEDS: SODIUM CHLORIDE 0.9% 1,000 ML IV SCH (22:09)
[2022-10-21] MEDS: HEPARIN 5,000 UNIT/1 ML VIAL SUBCUT SCH (22:10)
[2022-10-21] MEDS: metroNIDAZOLE INJ 500 MG/100 ML PREMIX IV SCH (22:10)
[2022-10-21] MEDS: PANTOPRAZOLE 40 MG VIAL IV SCH (22:11)
[2022-10-21] MEDS: METHENAMINE HIPPURATE 1 GM TABLET PO SCH (22:11)
[2022-10-21] MEDS: ASCORBIC ACID 500 MG TABLET PO SCH (22:11)
[2022-10-22 06:05] LABS: Basophils # 0.1 10*3/uL (0.0-0.2); Basophils % 0.5 % (0.0-0.8); Eosinophils % 0.3 % (0.00-10.9); Immature Granulocytes % 0.5 %; Immature Granulocytes Absolute 0.05 #; Lymphocytes # 2.5 10*3/uL (1.4-4.0); Lymphocytes % 23.1 % (21.3-54.2); Mean Corpuscular HGB Conc 32.3 GM/DL (32-36); Mean Corpuscular Volume 89.6 FL (87-102); Mean Platelet Volume 10.1 FL (9.6-12.0); Monocytes # 1.4 10*3/uL (0.11-0.8); Monocytes % 13.1 % (1.7-12.7); Neutrophils % 62.5 % (38.7-73.9); Platelet Count 301 T/CUMM (130-400); Red Blood Count 3.46 MC/CUMM (3.8-5.5); Red Cell Distribution Width 13.1 % (9.3-17.3); White Blood Count 10.71 T/CUMM (4-12)
[2022-10-22] MEDS: SODIUM CHLORIDE 0.9% 1,000 ML IV SCH ×2 (06:18→11:33)
[2022-10-22] MEDS: metroNIDAZOLE INJ 500 MG/100 ML PREMIX IV SCH ×3 (06:19→21:22)
[2022-10-22] MEDS: LEVOTHYROXINE 100 MCG TABLET PO SCH (06:19)
[2022-10-22] MEDS: HEPARIN 5,000 UNIT/1 ML VIAL SUBCUT SCH ×3 (06:19→21:26)
[2022-10-22 06:28] LABS: Calcium 7.4 MG/DL (8.5-10.1); Osmolality,Calculated 280.3 MOS/KG (273-304); Thyroid Stimulating Hormone 4.19 uIU/ml (0.358-3.74)
[2022-10-22] MEDS: METHENAMINE HIPPURATE 1 GM TABLET PO SCH ×2 (09:08→21:26)
[2022-10-22] MEDS: FERROUS SULFATE 325 MG TABLET PO SCH (09:08)
[2022-10-22] MEDS: ASPIRIN EC 81 MG TABLET PO SCH (09:08)
[2022-10-22] MEDS: POTASSIUM CHLORIDE 20 MEQ TABLET PO SCH (09:08)
[2022-10-22] MEDS: ASCORBIC ACID 500 MG TABLET PO SCH ×2 (09:08→21:26)
[2022-10-22] MEDS: DOCUSATE SODIUM 100 MG CAPSULE PO SCH ×3 (09:08→21:26)
[2022-10-22] MEDS: FLUDROCORTISONE 0.1 MG TABLET PO SCH (09:08)
[2022-10-22] MEDS: NON-FORMULARY MEDICATION (Bifidobacterium Infantis [Align] 4 mg Capsule) PO SCH (09:09)
[2022-10-22] MEDS: PANTOPRAZOLE 40 MG VIAL IV SCH ×2 (09:09→21:26)
[2022-10-22] MEDS: NON-FORMULARY MEDICATION (Fluticasone-Umeclidin-Vilanter [Trelegy Ellipta] 100-62.5-25 mcg INH SCH (09:10)
[2022-10-22] MEDS: cefTRIAXone 1,000 MG in SODIUM CHLORIDE 0.9% 100 ML IV SCH (09:13)
[2022-10-22] MEDS ORDERED: POTASSIUM CHLORIDE 20 MEQ TABLET PO ONE (09:30)
[2022-10-22] MEDS: ONDANSETRON 4 MG/2 ML VIAL IV PRN (15:01)
[2022-10-22] MEDS: ACETAMINOPHEN 325 MG TABLET PO PRN (15:50)
[2022-10-22] MEDS: MULTIVITAMIN (CENTRUM) TABLET PO SCH (21:26)
[2022-10-23] MEDS: ACETAMINOPHEN 325 MG TABLET PO PRN (00:16)
[2022-10-23] MEDS: metroNIDAZOLE INJ 500 MG/100 ML PREMIX IV SCH ×3 (06:23→21:07)
[2022-10-23] MEDS: LEVOTHYROXINE 100 MCG TABLET PO SCH (06:25)
[2022-10-23] MEDS: HEPARIN 5,000 UNIT/1 ML VIAL SUBCUT SCH ×3 (06:29→21:09)
[2022-10-23] MEDS: PANTOPRAZOLE 40 MG VIAL IV SCH ×2 (08:35→21:07)
[2022-10-23] MEDS: cefTRIAXone 1,000 MG in SODIUM CHLORIDE 0.9% 100 ML IV SCH (08:36)
[2022-10-23] MEDS: ASPIRIN EC 81 MG TABLET PO SCH (08:37)
[2022-10-23] MEDS: METHENAMINE HIPPURATE 1 GM TABLET PO SCH ×2 (08:37→21:04)
[2022-10-23] MEDS: FLUDROCORTISONE 0.1 MG TABLET PO SCH (08:37)
[2022-10-23] MEDS: ASCORBIC ACID 500 MG TABLET PO SCH ×2 (08:38→21:04)
[2022-10-23] MEDS: FERROUS SULFATE 325 MG TABLET PO SCH (08:38)
[2022-10-23] MEDS: POTASSIUM CHLORIDE 20 MEQ TABLET PO SCH (08:38)
[2022-10-23] MEDS: SODIUM CHLORIDE 0.9% 1,000 ML IV SCH ×2 (08:39→17:19)
[2022-10-23] MEDS: NON-FORMULARY MEDICATION (Bifidobacterium Infantis [Align] 4 mg Capsule) PO SCH (08:42)
[2022-10-23] MEDS: DOCUSATE SODIUM 100 MG CAPSULE PO SCH ×2 (08:43→21:04)
[2022-10-23] MEDS: NON-FORMULARY MEDICATION (Fluticasone-Umeclidin-Vilanter [Trelegy Ellipta] 100-62.5-25 mcg INH SCH (08:43)
[2022-10-23] MEDS ORDERED: POTASSIUM CHLORIDE 20 MEQ TABLET PO ONE (08:59)
[2022-10-23 12:34] LABS: Calcium 7.8 MG/DL (8.5-10.1); Osmolality,Calculated 281.3 MOS/KG (273-304)
[2022-10-23] MEDS ORDERED: SODIUM CHLORIDE 0.9% 1,000 ML IV SCH (17:30)
[2022-10-23] MEDS: MULTIVITAMIN (CENTRUM) TABLET PO SCH (21:04)
[2022-10-23] MEDS: ONDANSETRON 4 MG/2 ML VIAL IV PRN (22:54)
[2022-10-24] MEDS: HEPARIN 5,000 UNIT/1 ML VIAL SUBCUT SCH (06:10)
[2022-10-24] MEDS: LEVOTHYROXINE 100 MCG TABLET PO SCH (06:10)
[2022-10-24] MEDS: metroNIDAZOLE INJ 500 MG/100 ML PREMIX IV SCH (06:40)
[2022-10-24 07:26] VITALS: BP 116/56
[2022-10-24] MEDS: cefTRIAXone 1,000 MG in SODIUM CHLORIDE 0.9% 100 ML IV SCH (08:31)
[2022-10-24] MEDS: ASCORBIC ACID 500 MG TABLET PO SCH (08:32)
[2022-10-24] MEDS: ASPIRIN EC 81 MG TABLET PO SCH (08:32)
[2022-10-24] MEDS: METHENAMINE HIPPURATE 1 GM TABLET PO SCH (08:32)
[2022-10-24] MEDS: FLUDROCORTISONE 0.1 MG TABLET PO SCH (08:32)
[2022-10-24] MEDS: POTASSIUM CHLORIDE 20 MEQ TABLET PO SCH (08:32)
[2022-10-24] MEDS: PANTOPRAZOLE 40 MG VIAL IV SCH (08:32)
[2022-10-24] MEDS: FERROUS SULFATE 325 MG TABLET PO SCH (08:32)
[2022-10-24] MEDS: NON-FORMULARY MEDICATION (Bifidobacterium Infantis [Align] 4 mg Capsule) PO SCH (08:43)
[2022-10-24] MEDS: DOCUSATE SODIUM 100 MG CAPSULE PO SCH (08:44)
[2022-10-27] MEDS ORDERED: ADALIMUMAB 40 MG/0.8 ML SUBCUT SCH (09:00)
== END 2022-10-24 10:04 | disposition home or self-care (01) ==
LOC: N.EDINP 14:43 → N.ED 14:43 → SUATTDRO 19:44 → N.EDINP 20:58 → N.3E 21:39
PROVIDERS: ADMIT Hospitalist; ATTEND Internal Medicine